=== PATIENT | male | born 1980 | race Caucasian/White ===

== ENCOUNTER 2021-08-16 15:11 | Emergency (ER) | payer OTHER ==
--- NOTE | 2021-08-16 17:14 | ER ---
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 Patient reports the pain is primarily on the outer edge of his foot. Pain is described as throbbing and it wakes him up at night. Coronavirus screen: At this time, the client does not indicate any symptoms associated with coronavirus-19. Ebola Screen: No symptoms or risks identified at this time. Initial Sepsis Screen: Does the patient meet any 2 criteria? No. Patient's initial sepsis screen is negative. Does the patient have a suspected source of infection? No. Patient's initial sepsis screen is negative. Risk Assessment: Do you want to hurt yourself or someone else? Patient reports no desire to harm self or others. Onset of symptoms was July 16, 2021. 15:50 Method Of Arrival: Ambulatory ap3 15:50 Acuity: СВЕТЛАНА 4 ap3 Triage Assessment: 15:53 General: Appears in no apparent distress. Behavior is calm, cooperative, appropriate ap3 for age. Pain: Complains of pain in lateral side of right foot Pain currently is 7 out of 10 on a pain scale. Quality of pain is described as throbbing, Pain began suddenly, approx one month ago. Neuro: Level of Consciousness is awake, alert, obeys commands, Oriented to person, place, time, situation, Appropriate for age Gait is steady, Speech is normal. Cardiovascular: Capillary refill < 3 seconds Patient's skin is warm and dry. Respiratory: Airway is patent Respiratory effort is even, unlabored, Respiratory pattern is regular, symmetrical. Musculoskeletal: Reports pain in right foot. Historical: - Allergies: 15:52 No Known Allergies; ap3 - Home Meds: 15:52 unknown medication for HTN and high cholesterol [Active]; ap3 - PMHx: 15:52 Hypertensive disorder; Hypercholesterolemia; hard of hearing; ap3 - Immunization history:: Client reports receiving the 2nd dose of the Covid vaccine, and booster Flu vaccine is up to date. - Social history:: Smoking status: Patient denies any tobacco usage or history of. Screenin:54 Abuse screen: Denies threats or abuse. Nutritional screening: No deficits noted. ap3 Tuberculosis screening: No symptoms or risk factors identified. Fall Risk Fall in past 12 months (25 points). No secondary diagnosis (0 pts). No IV (0 pts). Ambulatory Aid- None/Bed Rest/Nurse Assist (0 pts). Gait- Normal/Bed Rest/Wheelchair (0 pts) Mental Status- Oriented to own ability (0 pts). Assessment: 15:53 Pain:. hughes 15:55 Pain: Complains of pain in right ankle, right Achilles and anterior aspect of right hughes ankle. Musculoskeletal: Reports pain in right ankle, right Achilles and anterior aspect of right ankle. Vital Signs: 15:50 BP 132 / 87; Pulse 76; Resp 16; Temp 99.3; Pulse Ox 98% ; Weight 99.79 kg; Height 5 ft. ap3 4 in. (162.56 cm); Pain 7/10; 15:50 Body Mass Index 37.76 (99.79 kg, 162.56 cm) ap3 ED Course: 15:18 Patient arrived in ED. as 15:20 Simba Robles DO is Private Physician. as 15:49 Chantal Frye, PONCHO is Primary Nurse. hughes 15:51 Triage completed. ap3 15:54 Tim Root PA is PHCP. jr8 15:54 Kathy Robles MD is Attending Physician. jr8 15:54 Arm band placed on right wrist. ap3 15:54 Patient has correct armband on for positive identification. Bed in low position. Call ap3 light in reach. Side rails up X 1. Pulse ox on. NIBP on. Door closed. Noise minimized. 15:55 No provider procedures requiring assistance completed. hughes 17:05 XRAY Foot RIGHT 3 View In Process Unspecified. EDMS 17:13 Felipe Flores DPM is Referral Physician. jr8 17:37 Patient did not have IV access during this emergency room visit. hughes Administered Medications: No medications were administered Outcome: 17:13 Discharge ordered by . jr8 17:37 Discharged to home hughes 17:37 Condition: good 17:37 Discharge instructions given to patient. 17:38 Patient left the ED. hughes Signatures: Dispatcher [employer] Lisa Weldon Josh, PA PA jr8 Nelly Henderson RN RN ap3 Chantal Frye RN RN ha
--- NOTE | 2021-08-16 17:14 | EDPHYS ---
Physician Documentation [facility] Name: Guevara Sánchez Age: 41 yrs Sex: Male : 1980 Arrival Date: 08/16/2021 Time: 15:18 Bed 19 Private MD: [facility] ED Physician Kathy Robles HPI: 08/16 16:00 This 41 yrs old Male presents to ER via Ambulatory with complaints of Foot Pain. jr8 16:00 The patient presents with pain. The complaints affect the lateral aspect of right foot. jr8 Patient presents with right foot pain after an injury that occurred 1 month ago. The patient states that she wants to ensure that it is not fractured since she is still experiencing pain.. Historical: - Allergies: 15:52 No Known Allergies; ap3 - Home Meds: 15:52 unknown medication for HTN and high cholesterol [Active]; ap3 - PMHx: 15:52 Hypertensive disorder; Hypercholesterolemia; hard of hearing; ap3 - Immunization history:: Client reports receiving the 2nd dose of the Covid vaccine, and booster Flu vaccine is up to date. - Social history:: Smoking status: Patient denies any tobacco usage or history of. ROS: 16:00 Constitutional: Negative for fever, chills, and weight loss, Cardiovascular: Negative jr8 for chest pain, palpitations, and edema, Respiratory: Negative for shortness of breath, cough, wheezing, and pleuritic chest pain, Skin: Negative for injury, rash, and discoloration. 16:00 MS/extremity: Positive for pain, of the right foot. 16:00 All other systems are negative. Exam: 16:00 Constitutional: This is a well developed, well nourished patient who is awake, alert, jr8 and in no acute distress. Cardiovascular: Regular rate and rhythm with a normal S1 and S2. No gallops, murmurs, or rubs. Normal PMI, no JVD. No pulse deficits. Respiratory: Lungs have equal breath sounds bilaterally, clear to auscultation and percussion. No rales, rhonchi or wheezes noted. No increased work of breathing, no retractions or nasal flaring. 16:00 Musculoskeletal/extremity: ROM: full active range of motion, in all extremities, Circulation is intact in all extremities. Sensation intact. Weight bearing: able to fully bear weight, Tenderness to palpation noted over the right fourth and fifth metatarsal shafts. Vital Signs: 15:50 BP 132 / 87; Pulse 76; Resp 16; Temp 99.3; Pulse Ox 98% ; Weight 99.79 kg; Height 5 ft. ap3 4 in. (162.56 cm); Pain 7/10; 15:50 Body Mass Index 37.76 (99.79 kg, 162.56 cm) ap3 MDM: 15:54 Patient medically screened. jr8 17:11 Data reviewed: vital signs, nurses notes, radiologic studies, plain films. Data jr8 interpreted: Pulse oximetry: on room air is 98 %. Interpretation: normal. Counseling: I had a detailed discussion with the patient and/or guardian regarding: the historical points, exam findings, and any diagnostic results supporting the discharge/admit diagnosis, radiology results, the need for outpatient follow up, a engineer steam, to return to the emergency department if symptoms worsen or persist or if there are any questions or concerns that arise at home. 17:11 ED course: Patient with no acute findings on plain film. Will put patient in a boot and jr8 send to podiatry for work-up for bone contusion versus unidentified stress fracture versus soft tissue injury. Patient good with this at this time will follow up.. 08/16 15:54 Order name: XRAY Foot RIGHT 3 View; Complete Time: 17:37 jr8 08/16 17:11 Order name: Splint Leg: Short Leg: Ortho short leg BOOT jr8 Administered Medications: No medications were administered Disposition Summary: 08/16/21 17:13 Discharge Ordered Location: Home jr8 Problem: new jr8 Symptoms: have improved jr8 Condition: Stable jr8 Diagnosis - Contusion of right foot jr8 Followup: jr8 - With: Felipe Flores DPM - When: 2 - 3 days - Reason: Recheck today's complaints, Continuance of care, Re-evaluation by your physician Discharge Instructions: - Discharge Summary Sheet jr8 - Foot Contusion jr8 Forms: - Medication Reconciliation Form jr8 - Thank You Letter jr8 - Antibiotic Education jr8 - Prescription Opioid Use jr8 Signatures: Dispatcher [employer] EDMS Tim Root PA PA jr8 Nelly Henderson RN RN ap3
--- NOTE | 2021-08-16 17:31 | RAD REPORT ---
EXAM DESCRIPTION: RAD - Foot Right 3 View - 08/16/2021 5:04 pm CLINICAL HISTORY: PAIN COMPARISON: No comparisons FINDINGS: Soft tissue swelling is seen along the medial foot and ankle. No fracture or dislocation.
[2021-08-17 06:57] VITALS: BP 132/87; TEMP 99.3; O2SAT 98
== END 2021-08-16 17:38 | disposition home or self-care (01) ==
LOC: ER 15:11
PROC: 2W3QX1Z Immobilization of Right Lower Leg using Splint (ICD-10-PCS; principal; 2021-08-16)
DX: S90.31XA Contusion of right foot, initial encounter (principal); E78.00 Pure hypercholesterolemia, unspecified; I10 Essential (primary) hypertension
CPT/HCPCS: 99283

== ENCOUNTER 2021-11-25 19:24 | Emergency (ER) | payer OTHER ==
[2021-11-25 20:30] LABS: Urine Blood Negative (Negative); Urine Glucose Negative (Negative); Urine Protein Negative (Negative); Urine Specific Gravity 1.025 (1.005-1.030)
--- NOTE | 2021-11-25 21:04 | RAD REPORT ---
EXAM DESCRIPTION: CT - Stone Protocol - 11/25/2021 8:52 pm CLINICAL HISTORY: Abdominal pain. Flank pain COMPARISON: 2011 TECHNIQUE: Computed axial tomography of the abdomen pelvis was obtained without oral or IV contrast. Lack of IV and oral contrast limits evaluation of solid organs, appendix, bowel, and vessels. Sawant l reformatted images were obtained and reviewed. All CT scans are performed using dose optimization technique as appropriate and may include automated exposure control or mA/KV adjustment according to patient size. FINDINGS: A renal calculus is not seen. An ureteral calculus is not noted. A bladder calculus is not present. The liver, spleen, pancreas and adrenals appear grossly normal There is no evidence of diverticulitis. The appendix appears normal A small umbilical hernia. Small left inguinal hernia IMPRESSION: Negative for a genitourinary calculus
[2021-11-25 21:34] LABS: Hematocrit 40.8 % (39.6-49.0); Lymphocytes % 29.6 % (15.3-44.8); MCV 83.3 fL (80-100)
[2021-11-25 21:40] LABS: Urine RBC <5 /HPF (None Seen)
[2021-11-25 21:41] LABS: Urine Bacteria None Seen /HPF (<20)
[2021-11-25 21:47] LABS: Albumin 3.7 g/dL (3.4-5.0); Bilirubin Total 0.2 mg/dL (0.2-1.0); Potassium 4.1 mmol/L (3.5-5.1); Protein, Total 8.1 g/dL (6.4-8.2)
[2021-11-25 22:27] LABS: Urine Blood Negative (Negative); Urine Glucose Negative (Negative); Urine Protein Negative (Negative); Urine Specific Gravity 1.025 (1.005-1.030); Urine pH 6.5 (5.0-7.0)
--- NOTE | 2021-11-25 22:29 | ER ---
Nurse's Notes [facility] Name: Guevara Sánchez Age: 41 yrs Sex: Male : 1980 Arrival Date: 11/25/2021 Time: 19:29 Bed 26 [facility] MD: Diagnosis: Left Flank Pain Presentation: 11/25 20:14 Chief complaint: Patient states: he thinks he has a bladder infection x 2 days has bb suprapubic and back pain. Coronavirus screen: At this time, the client does not indicate any symptoms associated with coronavirus-19. Ebola Screen: No symptoms or risks identified at this time. Initial Sepsis Screen: Does the patient meet any 2 criteria? No. Patient's initial sepsis screen is negative. Does the patient have a suspected source of infection? No. Patient's initial sepsis screen is negative. Risk Assessment: Do you want to hurt yourself or someone else? Patient reports no desire to harm self or others. Onset of symptoms was November 23, 2021. 20:14 Method Of Arrival: Ambulatory bb 20:14 Acuity: СВЕТЛАНА 3 bb Triage Assessment: 20:16 General: Appears in no apparent distress. Behavior is calm, cooperative. Pain: bb Complains of pain in back and pelvis. Neuro: Level of Consciousness is awake, alert, obeys commands, Oriented to person, place, time, situation. Cardiovascular: Capillary refill < 3 seconds Patient's skin is warm and dry. Respiratory: Airway is patent Respiratory effort is even, unlabored, Respiratory pattern is regular. GI: Reports lower abdominal pain. Derm: Skin is pink, warm \T\ dry. Musculoskeletal: Circulation, motion, and sensation intact. Historical: - Allergies: 20:16 No Known Allergies; bb - PMHx: 20:16 HARD OF HEARING; Hypercholesterolemia; Hypertensive disorder; bb - Immunization history:: Moderna. - Social history:: Smoking status: Patient denies any tobacco usage or history of. Screenin:26 Abuse screen: Denies threats or abuse. Nutritional screening: No deficits noted. ll3 Tuberculosis screening: No symptoms or risk factors identified. Fall Risk No fall in past 12 months (0 pts). No secondary diagnosis (0 pts). IV access (20 points). Ambulatory Aid- None/Bed Rest/Nurse Assist (0 pts). Gait- Normal/Bed Rest/Wheelchair (0 pts) Mental Status- Oriented to own ability (0 pts). Total Zapata Fall Scale indicates No Risk (0-24 pts). Assessment: 21:03 General: Appears uncomfortable, Behavior is calm, cooperative. Pain: Complains of pain ll3 in left flank and pelvis and suprapubic area Pain currently is 9 out of 10 on a pain scale. Quality of pain is described as crampy, Pain began 2-3 days ago. Is continuous. Neuro: Level of Consciousness is awake, alert, obeys commands, Oriented to person, place, time, situation. : Reports pain in left in suprapubic area flank(s), Denies burning with urination, inability to void, incontinence, urinary frequency, urgency. Derm: Skin is pink, warm \T\ dry. Musculoskeletal: Circulation, motion, and sensation intact. 22:40 Reassessment: No changes from previously documented assessment. Patient and/or family ll3 updated on plan of care and expected duration. Pain level reassessed. Patient is alert, oriented x 3, equal unlabored respirations, skin warm/dry/pink. Vital Signs: 20:14 BP 132 / 79; Pulse 93; Resp 16 S; Temp 98.5; Pulse Ox 99% on R/A; Weight 99.79 kg (R); bb Height 5 ft. 4 in. (162.56 cm) (R); 21:25 BP 117 / 68; Pulse 78; Resp 17; Pulse Ox 98% on R/A; ll3 22:40 BP 130 / 76; Pulse 79; Resp 18; Pulse Ox 99% on R/A; ll3 20:14 Body Mass Index 37.76 (99.79 kg, 162.56 cm) bb ED Course: 19:29 Patient arrived in ED. ja2 20:13 Kathy Llamas FNP-C [facility]. kb 20:13 Dominick Albarran MD is Attending Physician. kb 20:16 Triage completed. bb 20:16 Arm band placed on Patient placed in waiting room, Patient notified of wait time. bb 20:54 CT Stone Protocol In Process Unspecified. EDMS 21:03 Marilyn Oreilly, PONCHO is Primary Nurse. ll3 21:08 Initial lab(s) drawn, by me, sent to lab. Inserted saline lock: 22 gauge in right ll3 antecubital area, using aseptic technique. Blood collected. 21:26 Patient has correct armband on for positive identification. Bed in low position. Call ll3 light in reach. Side rails up X 1. 22:47 No provider procedures requiring assistance completed. IV discontinued, intact, ll3 bleeding controlled, No redness/swelling at site. Pressure dressing applied. Administered Medications: No medications were administered Medication: 22:46 VIS not applicable for this client. ll3 Outcome: 22:28 Discharge ordered by MD. vanessa 22:47 Discharged to home ambulatory. ll3 22:47 Condition: stable 22:47 Discharge instructions given to patient, Instructed on discharge instructions, follow up and referral plans. Demonstrated understanding of instructions, follow-up care. 22:47 Patient left the ED. ll3 Signatures: Dispatcher [employer] EDKathy Pham, AMUSEMENT PARK RIDE MECHANIC-C AMUSEMENT PARK RIDE MECHANIC-Rosie Quick, RN RN Yazmin Holland Lynsea, RN RN ll3
--- NOTE | 2021-11-25 22:29 | EDPHYS ---
Physician Documentation [facility] Name: Guevara Sánchez Age: 41 yrs Sex: Male : 1980 Arrival Date: 11/25/2021 Time: 19:29 Bed 26 Private MD: ED Physician Dominick Albarran HPI: 11/25 20:19 This 41 yrs old Male presents to ER via Ambulatory with complaints of Urinary Problem. kb 20:19 The patient complains of pain in the left flank. The pain radiates to the suprapubic kb area and left lower quadrant. Onset: The symptoms/episode began/occurred 2 day(s) ago. Modifying factors: The symptoms are alleviated by nothing. the symptoms are aggravated by nothing. Associated signs and symptoms: The patient has no apparent associated signs or symptoms. Severity of pain: At its worst the pain was moderate in the emergency department the pain is unchanged. The patient has not experienced similar symptoms in the past. The patient has not recently seen a physician. pt reports suprapubic pain, left flank pain and difficulty urinating for 2 days. Denies fever, n/v/d, dysuria. Historical: - Allergies: 20:16 No Known Allergies; bb - PMHx: 20:16 HARD OF HEARING; Hypercholesterolemia; Hypertensive disorder; bb - Immunization history:: Moderna. - Social history:: Smoking status: Patient denies any tobacco usage or history of. ROS: 20:17 Constitutional: Negative for fever, chills, and weight loss. kb 20:17 Abdomen/GI: Positive for abdominal pain, Negative for nausea, vomiting, and diarrhea. 20:17 : Positive for flank pain, difficulty urinating. 20:17 All other systems are negative. Exam: 20:17 Constitutional: This is a well developed, well nourished patient who is awake, alert, kb and in no acute distress. Head/Face: Normocephalic, atraumatic. ENT: Moist Mucous membranes Cardiovascular: Regular rate and rhythm with a normal S1 and S2. No gallops, murmurs, or rubs. No pulse deficits. Respiratory: Respirations even and unlabored. No increased work of breathing. Talking in full sentences Skin: Warm, dry with normal turgor. Normal color. MS/ Extremity: Pulses equal, no cyanosis. Neurovascular intact. Full, normal range of motion. Neuro: Awake and alert, GCS 15, oriented to person, place, time, and situation. Moves all extremities. Normal gait. Psych: Awake, alert, with orientation to person, place and time. Behavior, mood, and affect are within normal limits. 20:17 Abdomen/GI: Inspection: abdomen appears normal, Bowel sounds: normal, in all quadrants, Palpation: soft, in all quadrants, moderate abdominal tenderness, in the suprapubic area. 20:17 Back: CVA tenderness, that is moderate, is noted on the left. Vital Signs: 20:14 BP 132 / 79; Pulse 93; Resp 16 S; Temp 98.5; Pulse Ox 99% on R/A; Weight 99.79 kg (R); bb Height 5 ft. 4 in. (162.56 cm) (R); 21:25 BP 117 / 68; Pulse 78; Resp 17; Pulse Ox 98% on R/A; ll3 22:40 BP 130 / 76; Pulse 79; Resp 18; Pulse Ox 99% on R/A; ll3 20:14 Body Mass Index 37.76 (99.79 kg, 162.56 cm) bb MDM: 20:13 Patient medically screened. kb 20:18 Data reviewed: vital signs, nurses notes. Data interpreted: Pulse oximetry: on room air kb is 99 %. Interpretation: normal. 22:28 Counseling: I had a detailed discussion with the patient and/or guardian regarding: the kb historical points, exam findings, and any diagnostic results supporting the discharge/admit diagnosis, lab results, radiology results, the need for outpatient follow up, a family practitioner, to return to the emergency department if symptoms worsen or persist or if there are any questions or concerns that arise at home. 11/25 20:15 Order name: CBC with Diff; Complete Time: 21:43 kb 11/25 20:15 Order name: CMP; Complete Time: 21:55 kb 11/25 20:15 Order name: Lipase; Complete Time: 21:55 kb 11/25 20:15 Order name: Urine Microscopic Only; Complete Time: 21:43 kb 11/25 20:30 Order name: Urine Dipstick-Ancillary; Complete Time: 20:34 EDMS 11/25 22:27 Order name: Urine Dipstick-Ancillary; Complete Time: 22:28 EDMS 11/25 20:15 Order name: CT Stone Protocol; Complete Time: 21:43 kb 11/25 20:15 Order name: IV Saline Lock; Complete Time: 21:17 kb 11/25 20:15 Order name: Labs collected and sent; Complete Time: 21:17 kb 11/25 20:15 Order name: Urine Dipstick-Ancillary (obtain specimen); Complete Time: 22:26 kb Administered Medications: No medications were administered Disposition: 11/26 07:25 Co-signature as Attending Physician, Dominick Albarran MD. [email or web address] Disposition Summary: 11/25/21 22:28 Discharge Ordered Location: Home kb Condition: Stable kb Diagnosis - Left Flank Pain kb Followup: kb - With: Emergency Department - When: As needed - Reason: Worsening of condition Followup: kb - With: Private Physician - When: 2 - 3 days - Reason: Recheck today's complaints, Continuance of care, Re-evaluation by your physician Discharge Instructions: - Discharge Summary Sheet kb - Flank Pain, Adult, [id number] kb Forms: - Medication Reconciliation Form kb - Thank You Letter kb - Antibiotic Education kb - Prescription Opioid Use kb Prescriptions: - Diclofenac Sodium 75 mg Oral tablet,delayed release (DR/EC) - take 1 tablet by ORAL route 2 times per day As needed; 30 tablet; Refills: 0, kb Product Selection Permitted Signatures: Dispatcher [employer] Kathy De La Rosa FNP-C FNP-Rosie Quick, PONCHO RN Dominick Chatman MD MD [email or web address]
[2021-11-25 22:55] VITALS: TEMP 98.5
[2021-11-25 22:57] VITALS: BP 117/68; O2SAT 98
== END 2021-11-25 22:47 | disposition home or self-care (01) ==
LOC: ER 19:24
DX: R10.9 Unspecified abdominal pain (principal); R30.0 Dysuria; I10 Essential (primary) hypertension
CPT/HCPCS: 36415; 74176; 76377; 80053; 81003; 81015; 83690; 85025; 99283

== ENCOUNTER 2022-10-13 07:55 | Day surgery (SDC) | payer OTHER ==
[2022-10-12 10:53] LABS: Absolute Lymphocytes (CBC) 2.1 K/uL (0.7-4.9); Hematocrit 41.8 % (39.6-49.0); Lymphocytes % 24.4 % (15.3-44.8); MCV 84.6 fL (80-100); MPV 7.9 fL (7.6-11.3); RBC Red Blood Cell Count 4.94 M/uL (4.33-5.43)
[2022-10-12 11:11] LABS: Potassium 3.9 mEq/L (3.5-5.1)
--- NOTE | 2022-10-12 12:06 | EKG ---
Test Date: 2022-10-12 Test Time: 10:55:14 Cash Applications Analyst: DENIS MEASUREMENT RESULTS: Intervals: Rate: 81 AR: 118 QRSD: 90 QT: 344 QTc: 399 [place]: P: 59 AR: 118 QRS: 64 T: 67 INTERPRETIVE STATEMENTS: Normal sinus rhythm Normal ECG Compared to ECG 05/29/2003 14:35:00 Sinus arrhythmia no longer present Short AR interval no longer present T-wave abnormality no longer present Electronically Signed On 10-12-22 12:05:45 CDT by Paul Singer
[2022-10-13] MEDS: Ringers Lactate 1,000 ML IV ONE (08:30)
[2022-10-13] MEDS ORDERED: CEFAZOLIN SODIUM 2 GM/VIAL ONE (08:30)
[2022-10-13] MEDS ORDERED: BUPIVACAINE 0.25% PF 10 ML VIAL ONE (09:32)
[2022-10-13] MEDS ORDERED: propofoL 200 MG/20 ML VIAL IV ONE (09:32)
[2022-10-13] MEDS ORDERED: FENTANYL CITR 100 MCG/2 ML ONE (09:33)
[2022-10-13] MEDS ORDERED: ROCURONIUM 50 MG/5 ML VIAL IV ONE (09:33)
[2022-10-13] MEDS ORDERED: MIDAZOLAM HCL 2 MG/2 ML INJ ONE (09:33)
[2022-10-13] MEDS ORDERED: dexAMETHasone 10 MG/ML VIAL ONE (09:33)
[2022-10-13] MEDS ORDERED: KETOROLAC 30 MG/ML INJ ONE (09:34)
[2022-10-13] MEDS ORDERED: LIDOCAINE 2% MPF 5 ML VIAL ONE (09:34)
[2022-10-13] MEDS ORDERED: ONDANSETRON 4 MG/2 ML VIAL ONE (09:34)
[2022-10-13] MEDS ORDERED: NS 0.9% VIAL 20 ML ONE (10:22)
[2022-10-13] MEDS ORDERED: Phenylephrine HCl 10 MG/ML 1 ML VIAL ONE (10:48)
[2022-10-13] MEDS ORDERED: NS 0.9% VIAL 10 ML ONE (10:48)
[2022-10-13] MEDS ORDERED: Ringers Lactate 1,000 ML IV ONE (10:57)
--- NOTE | 2022-10-13 11:12 | P.OP ---
Preoperative diagnosis: LEFT Inguinal Hernia Postoperative diagnosis: LEFT Inguinal Hernia Primary procedure: Open LEFT Inguinal Hernia Repair with mesh Anesthesia: GETA + Local Estimated blood loss: < 2cc Specimen: Cord Lipoma Findings: Indirect inguinal hernia, cord lipoma Complications: None Implants: Bard Medium Plug and Patch Hernia Repair System Transferred to: Recovery Room Condition: Good
[2022-10-13] MEDS ORDERED: GLYCOPYRROLATE 0.2 MG/ML SYR ONE (11:16)
[2022-10-13] MEDS ORDERED: NEOSTIGMINE 1 MG/ML -10 ML VIAL ONE (11:16)
[2022-10-13] MEDS: HYDROMORPHONE HCL 1 MG/ML INJ ONE ×2 (11:40→11:46)
[2022-10-13] MEDS ORDERED: HYDROMORPHONE HCL 1 MG/ML INJ ONE (11:59)
[2022-10-13 12:01] VITALS: O2SAT 98
[2022-10-13] MEDS ORDERED: HYDROCODONE/APAP 7.5/325 MG TAB ONE (12:33)
[2022-10-13 13:49] VITALS: BP 121/71; TEMP 98
--- NOTE | 2022-10-13 17:39 | OP ---
Date of Procedure: 10/13/2022 Surgeon: Erick Hanna MD, Brief History Of Present Illness: Patient is a 42-year-old male who is legally deaf and is able to c ommunicate via written word as well as Malawian sign language of which we have used both methods to c ommunicate with the patient, who presents with a left inguinal hernia. He was deemed appropriate for operative intervention. Preoperative Diagnosis: Left inguinal hernia. Postoperative Diagnosis: Left inguinal hernia. Procedure Performed: Open left inguinal hernia repair with mesh. Anesthesia: General endotracheal plus local with 0.25% Marcaine. Estimated Blood Loss: Less than 2 cc. Specimen: Cord lipoma. Findings: Indirect inguinal hernia and cord lipoma. Complications: None. Implants: Bard medium plug and patch hernia repair system. Disposition: Patient was transferred to the recovery room in good condition. Procedure In Detail: After informed consent was obtained, patient was brought to the operating room, prepped and draped in the usual sterile fashion after adequate anesthesia was achieved. I made an i nguinal incision in the left lower groin region down through subcutaneous tissues after appropriately anesthetizing the skin with 0.25% Marcaine. A 15 blade was used to dissect down up to the Camper fa t. I then dissected Camper fat and Nicole fascia to expose the external oblique aponeurosis. The ex ternal oblique aponeurosis was found to be quite thin and alveolar, likely due to significant dilatat ion from the hernia. Therefore, damaging the external oblique aponeurosis. This was opened sharply using a 15 blade. I then opened in its entirety using Metzenbaum scissor. I encircled the spermatic cord structures with a Delphine drain and dissected free a hernia sac from the medial aspect of the s permatic cord structures. The floor of the inguinal canal was somewhat weak and floppy as well. At this point, I removed the cord lipoma, reduced the hernia sac and contents into the preperitoneal spa ce after it from the spermatic cord structures. The ilioinguinal and iliohypogastric nerv es were protected throughout. I then placed a medium Bard PerFix plug into the preperitoneal space t o repair the indirect inguinal hernia. I deployed the mesh at this point and secured it circumferent ially around using 2-0 PDS sutures. I then sized the hernia patch appropriately and secured it to th e undersurface of the internal oblique aponeurosis as well as the undersurface edge of the inguinal l igament with the same said 2-0 PDS suture in an interrupted fashion, securing the medial aspect to th e pubic tubercle with same said 2-0 PDS suture. The deep inguinal ring was reconstituted at this poi nt. I then copiously irrigated the area, closed the external oblique aponeurosis with a running 3-0 Vicryl suture protecting the ilioinguinal nerve. I then irrigated the area once again, closed the Ca mper fat and Nicole fascia en bloc using the same said 3-0 0 Vicryl suture in interrupted fashion. D eep dermal plane was closed using same said 3-0 Vicryl suture in interrupted fashion. Skin was close d with a 4-0 Monocryl in a running fashion. Dermabond placed over top. Patient tolerated the proced ure well without evidence of complication and transferred to PACU in good condition. All counts were correct at the end of the case. MACIE/MAYA Voice ID: [id number] Report ID: [id number]
== END 2022-10-13 13:30 | disposition home or self-care (01) ==
LOC: OR 07:55
PROVIDERS: ATTEND Surgery
PROC: 0YU60JZ Supplement Left Inguinal Region with Synthetic Substitute, Open Approach (ICD-10-PCS; principal; 2022-10-13 09:15)
DX: K40.90 Unilateral inguinal hernia, without obstruction or gangrene, not specified as recurrent (principal)
CPT/HCPCS: 93005; 85025; 80048; 36415; 88302; 49505; A4216 ×2; J2704; J2710; J2370; J2001; J2250; J3010; J1100; J1170 ×2; J2405; J7120 ×2